=== PATIENT | male | born 1940 | race Caucasian/White ===

== ENCOUNTER 2016-08-04 05:20 | Inpatient (IN) | payer MEDICARE, OTHER ==
[2016-07-27 11:23] LABS: BASOPHILS 0.5 %; BASOPHILS ABSOLUTE 0.04 10/3/uL (0.0-0.16); EOSINOPHILS 2.5 %; EOSINOPHILS ABSOLUTE 0.21 10/3/uL (0.0-0.53); IMMATURE GRANULOCYTES 0.1 %; IMMATURE GRANULOCYTES ABSOLUTE 0.01 10/3/uL (0.0-0.11); LYMPHOCYTES ABSOLUTE 1.46 10/3/uL (0.67-4.30); MEAN CORPUSCULAR HEMOGLOB 25.6 pg (26.0-34.0); MEAN CORPUSCULAR VOLUME 80.8 fL (80-100); MEAN PLATELET VOLUME 9.2 fL (9.2-13.0); MONOCYTES 12.3 %; MONOCYTES ABSOLUTE 1.05 10/3/uL (0.21-1.20); NEUTROPHILS 67.6 %; PLATELET COUNT 203 10/3/uL (150-400); RBC DISTRIBUTION WIDTH 15.9 % (12.0-16.0); WHITE BLOOD CELLS 8.6 10/3/uL (4.5-10.5)
[2016-07-27 11:25] LABS: HEMATOCRIT 27.8 % (40.0-51.0); HEMOGLOBIN 8.8 g/dL (13.6-17.8); MANUAL DIFF NO %; MEAN CORPUS HGB CONC 31.7 g/dL (32.0-36.0); RED CELL COUNT 3.44 10/6/uL (4.7-6.1)
[2016-07-27 11:30] LABS: INTERNATIONAL NORMAL RATI 2.3 UNITS (-); PROTIME (NOT ORD) 25.3 SEC (12.0-14.5)
[2016-07-27 11:38] LABS: % IRON SAT 6 % (20-50); A/G RATIO 1.2 (0.7-1.9); ALBUMIN 3.8 G/DL (3.5-5.0); ALKALINE PHOSPHATASE 82 U/L (45-117); CALCIUM, SERUM 9.4 MG/DL (8.5-10.4); CHLORIDE, SERUM 108 MMOL/L (96-112); CO2 (CARBON DIOXIDE) 31 MMOL/L (24-34); CREATININE 1.11 MG/DL (0.70-1.30); GFR AFRICAN AMERICAN 74 ML/MIN (>=60); GFR NON AFRICAN AMERICAN 64 ML/MIN (>=60); GLOBULIN 3.3 G/DL (2.5-4.1); GLUCOSE, SERUM 86 MG/DL (60-99); IRON BINDING CAPACITY 510 MCG/DL (250-450); IRON, SERUM 30 MCG/DL (35-150); SGOT(AST) 10 U/L (5-40); SGPT(ALT) 17 U/L (5-65); SODIUM, SERUM 143 MMOL/L (135-148); TOTAL BILIRUBIN 0.4 MG/DL (0-1.2); TOTAL PROTEIN 7.1 G/DL (6.0-8.5)
[2016-07-27 11:39] LABS: BUN (BLOOD UREA NITROGEN) 18 MG/DL (6-23); POTASSIUM, SERUM 4.3 MMOL/L (3.5-5.3)
[2016-07-27 13:50] LABS: ASCORBIC ACID (UR NOT ORDER) 40 (NEG); BILIRUBIN, URINE NEGATIVE (NEG); KETONE, URINE NEGATIVE (NEG); LEUKOCYTE ESTERASE(NOT OR NEG (NEG); WBC (NOT ORDERED) (RFLEX) < 1 (0-5)
--- NOTE | ~2016-08-04 | OP ---
Record Of Operation [facility] [address] [place] [place]. [address] NAME: PETER KENNEDY : 38 STATUS : ADM IN [facility]#: [id number] AGE: 76 ADM/REG DATE : 08/04/16 MR#: [id number] REPORT SERV DATE: 08/09/16 DICTATED BY: JULIA DUTTON DATE: 08/06/16 REPORT STATUS : Draft TRANSCRIBED BY: MODJigna DATE: 08/06/16 DATE OF PROCEDURE: 08/04/2016 PREOPERATIVE DIAGNOSES: 1. Mitral valve stenosis with insufficiency. 2. Paroxysmal atrial fibrillation. 3. Right bundle branch block. 4. Hypertension. 5. Hyperlipidemia. 6. Pulmonary hypertension. POSTOPERATIVE DIAGNOSES: 1. Mitral valve stenosis with insufficiency. 2. Paroxysmal atrial fibrillation. 3. Right bundle branch block. 4. Hypertension. 5. Hyperlipidemia. 6. Pulmonary hypertension. PROCEDURE PERFORMED: 1. Mitral valve replacement using a 31 mm pericardial valve (Magna Ease with chordal- sparing technique). 2. Belle-Maze IV procedure on cardiopulmonary bypass using radiofrequency ablation and cryoablation. 3. Transesophageal echocardiography. SURGEON: Julia Dutton M.D. ASSISTANTS: Karthikeyan Moore and Adebayo Gibbs. ANESTHESIA: General with Dr. Dowd. ATTACHE: Christianne Duran M.D. INDICATIONS: This is a 76-year-old gentleman who has a history of mitral valve stenosis. He has increasing episodes of shortness of breath over the last several months and repeat echocardiography demonstrated a reduced valve area of the mitral valve at 1.06 cm2 with a mean gradient of 8 mmHg. There was also [id number] mitral valve insufficiency. The patient has history of paroxysmal atrial fibrillation and recently underwent cardioversion. He underwent a cardiac catheterization, which demonstrated less than 50% coronary artery stenosis. We were asked to see the patient for possible mitral valve replacement and consideration for Maze procedure. The patient complains of severe dyspnea walking less than a 100 yards. He cannot climb stairs without significant shortness of breath. He does have orthopnea and does wear a CPAP mask at night. He has no history of stroke. He does have peripheral edema. We saw the patient in our office and discussed possible mitral valve repair or replacement. After discussing the operations, indication, risks, they wished to Record Of Operation [facility] [address] [place]. [address] NAME: PETER KENNEDY : 39 STATUS : ADM IN PAT#: [id number] AGE: 76 ADM/REG DATE : 08/04/16 MR#: [id number] REPORT SERV DATE: 08/09/16 DICTATED BY: JULIA DUTTON DATE: 08/06/16 REPORT STATUS : Draft TRANSCRIBED BY: MODL DATE: 08/06/16 proceed. STS predicted mortality of less than 2% morbidity mortality of 12% were shared with the family. FINDINGS AT OPERATION: 1. Cross-clamp 79 minutes. Total pump time of 124 minutes. Residential solution was utilized. 2. The mitral valve had thickened bilateral leaflets. There was very thickened and shortened chordae of A2 and A1. Also along the posterior leaflet P2 and P3 had fused, thickened, and attach chordae to the posterior wall of the heart. We debrided and excised A1 and A2 leaflet with chords. We debulked the calcified mass of leaflet and chordal tissue around P2 and P3, but left some of the secondary chordal apparatus in place. We did preserve all of P1 chords. The annulus of the valve itself was not heavily calcified. 3. A 31 mm pericardial valve was implanted (Magna Ease). 7300 TFX. 14 Cor-Knots were utilized to secure the valve in place. 4. Belle-Maze IV procedure was performed on cardiopulmonary bypass using AtriCure radiofrequency ablation, pen and clamp and the cryoablation probe. This was a standard Belle-Maze 4 procedure, and complete lesion set can be found in the operative section under lesion set checklist. Both right and left atrial appendage lesion set was created. 5. The left atrial appendage was ligated at its base using a 45 mm AtriClip device. 6. NY at the end of the operation demonstrated good ventricular function. There was mild aortic insufficiency. No significant tricuspid insufficiency and the mitral prosthesis was functioning well without perivalvular leak. Pathologic specimen includes the leaflets of the mitral valve. DESCRIPTION OF PROCEDURE: The patient was brought to the operating suite where general anesthesia was induced and airway secured with an endotracheal tube. Lines secured by Anesthesia. Anguiano catheter was placed. NY probe was placed by Dr. Dowd and examination carried out in my attendance as discussed above. No clot was seen in the left atrial appendage. Midline sternal incision was made, the sternum opened with a saw. Lines were passed on the field for cardiopulmonary bypass and cleared of air. Heparin was administered by anesthesia. Pericardium was then opened from the innominate vein. The diaphragm was T'd and tacked to the side of the chest wall. Then cannulation pursestring sutures were placed in the ascending aorta and right atrial appendage. Cannulation of the ascending aorta was carried out first. We then began the right atrial Maze portion of the procedure. The AtriCure bipolar clamp was used to perform the right atrial appendage lesion and the lesion on to the right atrial free wall. We then placed the dual stage venous cannula through the right atrial appendage pursestring suture and this was secured. When all was in readiness, the patient was placed on cardiopulmonary bypass and we continued with the Maze procedure. Pursestring suture was placed in the right atrial free wall near the AV groove anteriorly. The vertical right atrial lesion performed using the AtriCure Record Of Operation [address] [address] NAME: PETER KENNEDY : 38 STATUS : ADM IN PAT#: [id number] AGE: 76 ADM/REG DATE : 08/04/16 MR#: [id number] REPORT SERV DATE: 08/09/16 DICTATED BY: JULIA DUTTON DATE: 08/06/16 REPORT STATUS : Draft TRANSCRIBED BY: PRINCESS DATE: 08/06/16 bipolar clamp. A pursestring sutures were placed in the interatrial groove of [facility], and the bipolar clamp was infused performing superior and inferior vena cava lesions set. Then, using the cryoprobe, a coronary sinus lesion was performed and also a lesion to the 2 o'clock position on the tricuspid annulus. We then moved on to the left-sided portion of the Maze procedure. Interatrial groove of [place] was dissected. We then dissected circumferentially around the confluence of both pulmonary veins. Testing for entrance conduction of the pulmonary veins was performed. The AtriCure bipolar clamp was then used to perform pulmonary vein isolation and testing was done after this. The aorta was then cross clamped. Initial and only dose of Residential solution was administered in antegrade fashion. Following the only dose of cardioplegia, the left atrium was opened in the interatrial groove of [place]. Heart was gently retracted towards the surgeon. The left atrial appendage was measured and the base of the left atrial appendage was occluded using a 45 mm AtriClip. Next superior and inferior dome lesions were performed using the RFA clamp. The lesion to the mitral annulus was performed using combination of RFA and cryoablation. Following the Maze procedure, we continued on with the mitral valve assessment. Bal retractor apparatus was assembled and positioned allowing good visualization of mitral valve. The mitral valve was inspected, both leaflets were very thickened and with shortened infused chordae. This was most pronounced along the P2, P3 cusps of the posterior leaflet where the leaflet was fused to the posterior ventricular wall, and there was extensive calcification along the chordal structure. This was debulked and debrided as best possible. We were able to preserve most of the secondary chordae of the posterior leaflet to the annulus. It was interesting that the annulus of the valve was not heavily calcified. We did resect anterior leaflet along with the fused and shortened chords. We irrigated the left ventricle copiously with iced saline to remove any particulate matter. The valve was sized and a 31 mm pericardial valve was selected (Magna Ease). Interrupted pledgeted sutures of 2-0 Tycron placed circumferentially about the mitral valve annulus. Sutures were passed through the sewing cuff of the valve prosthesis. This was lowered into position, each sutures individually secured and divided using a Cor-Knot device. 14 Cor- Knots were utilized. Iced saline injection through the orifice of the prosthetic valve demonstrated no insufficiency and good seating of the valve. Warming was begun. An LV vent was directed through the right superior pulmonary vein into the left ventricle through the prosthesis and secured. Left atriotomy was closed in a two- layer fashion with running pledgeted suture of 4-0 Prolene. The patient was placed in Trendelenburg and the ventricle and aorta were de-aired. The aortic cross-clamp was removed. The heart was allowed to rest on cardiopulmonary bypass and low-dose inotropic agents were started. Pacing was begun in AV fashion and ventilations were also begun. When the heart demonstrated good contractility, it was allowed to fill and eject. Record Of Operation [facility] [address] [place]. [address] NAME: PETER KENNEDY : 38 STATUS : ADM IN [facility]#: [id number] AGE: 76 ADM/REG DATE : 08/04/16 MR#: [id number] REPORT SERV DATE: 08/09/16 DICTATED BY: JULIA DUTTON DATE: 08/06/16 REPORT STATUS : Draft TRANSCRIBED BY: PRINCESS DATE: 08/06/16 Deairing was monitored with NY. When deairing was completed, the LV vent was removed and each pursestring sutures tied. The ascending aortic vent was likewise removed, and each pursestring sutures tied and reinforced. The patient was then weaned from cardiopulmonary bypass with inotropic support. The venous cannulas were removed and each pursestring sutures tied. NY examination demonstrated good functioning ventricle. Mitral prosthesis was well seated and there was no perivalvular leak. There was no significant tricuspid valve insufficiency. Protamine was administered by Anesthesia and following a period of hemodynamic stability, the aortic cannula was removed and each pursestring sutures tied and reinforced. The patient continued do well and chest irrigated copiously with saline. Meticulous hemostasis was obtained. Hemasorb was placed along the cut edge of the sternum. Once hemostasis was assured, the pericardium was draped over the anterior surface of the heart and tacked into position. Chest tubes were placed in sternum reapproximated with 8 sternal wires. The clavipectoral fascia and linea alba closed with #1 Stratafix. The subcutaneous tissue was closed with Stratafix and skin closed with subcuticular fashion. The patient tolerated the procedure well. There were no complications. Sponge and needle counts were correct. DISPOSITION: The patient was left intubated, sedated, and transported to the intensive care unit in a stable condition. JONNY/PRINCESS Julia Dutton M.D. / [id number] CC: Theodore Burden MAXWELL Lisa Gail Carkner, M.D.
--- NOTE | ~2016-08-04 | DS ---
Discharge Summary [facility] [address] [place] [place]. [address] NAME: PETER KENNEDY : 38 STATUS : DIS IN PAT#: [id number] AGE: 76 ADM/REG DATE : 08/04/16 MR#: [id number] REPORT SERV DATE: 09/23/16 DICTATED BY: JULIA DUTTON DATE: 09/20/16 REPORT STATUS : Draft TRANSCRIBED BY: PRINCESS DATE: 09/20/16 Data Collection from hospitalization DISCHARGE DIAGNOSIS(ES): 1. Mitral valve stenosis with insufficiency, status post mitral valve replacement. 2. Hypertension. 3. Acute kidney injury. 4. Recurrent atrial fibrillation. 5. Hyperlipidemia. 6. Secondary pulmonary hypertension. 7. Former smoker. CONSULTATIONS: 1. Del Santos DO. 2. Marin Rider M.D. 3. Aurelio Martin Jr, MD. 4. Christianne Duran M.D. 5. Truong Cloud M.D. PROCEDURES PERFORMED: Mitral valve replacement using 31 mm pericardial valve (Magna Ease with chordal sparing technique), Belle-Maze IV procedure on cardiopulmonary bypass using radiofrequency ablation and cryoablation, transesophageal echocardiography 08/04/2016. 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 MEDICATIONS: Vitamin C 1000 mg twice a day, aspirin 81 mg daily, vitamin D3 2000 units daily, Klor-Con 10 mEq at bedtime, Pravachol 40 mg daily, Aldactone 25 mg daily, Demadex 40 mg every morning, Stresstabs 1 tablets twice a day, Coumadin 2 mg at 6 a.m. as instructed, Lopressor 25 mg twice a day, Norvasc 5 mg daily, and vitamin D twice a day as instructed. CONDITION AT DISCHARGE: Stable. DISPOSITION: The patient was discharged to [facility] on a cardiac diet with activities as instructed. HOSPITAL COURSE: This is a 76-year-old man who has a history of mitral valve stenosis. He had increasing episodes of shortness of breath over the past several months, and repeat echocardiography demonstrated a reduced valve area of the mitral valve at 1.06 cm sq with a mean gradient of 8 mmHg. There was also [id number] mitral valve insufficiency. The patient has a history of paroxysmal atrial fibrillation and recently underwent cardioversion. He underwent a cardiac catheterization which demonstrated less than 50% coronary artery stenosis. We had been asked to see the patient regarding possible mitral valve replacement and consideration for maze procedure. The patient complained of severe dyspnea on walking less than 100 yards. He cannot climb stairs without significant shortness of breath. He does have orthopnea and does wear a CPAP mask at night. He does have peripheral edema. The patient had been seen in the office and treatment options were discussed. It was elected to proceed with surgical intervention. He was admitted to the hospital at this time for further evaluation and treatment. Discharge Summary [address] [address] NAME: PETER KENNEDY : 38 STATUS : DIS IN PAT#: [id number] AGE: 76 ADM/REG DATE : 08/04/16 MR#: [id number] REPORT SERV DATE: 09/23/16 DICTATED BY: JULIA DUTTON DATE: 09/20/16 REPORT STATUS : Draft TRANSCRIBED BY: PRINCESS DATE: 09/20/16 Upon admission, he was taken to the operating room where he underwent the above-mentioned procedure. He tolerated this well, and there were no complications. On postop day #1, he was being weaned from the ventilator. Routine postop care was being provided. Levophed was being weaned. He had no new complaints. He had mildly decreased breath sounds in the lung bases. He remained in the ICU at this time. He did have some leukocytosis as expected. He was seen by Dr. Christianne Duran regarding postop soreness. He was given an additional dose of Bumex. Pravastatin was added back to his regimen. Beta flaquita and amiodarone were held while on paced rhythm. He will be placed on anticoagulation with warfarin after his pacing wires were removed. On the , he was up sitting in a chair. He was awake and alert. His incisions looked okay. He had no edema. White count was 23.9. He did have some wheezing. He complained of a decreased appetite. Aspirin was being given. Metoprolol and amiodarone remained on hold. Pravastatin was continued. He was seen by Dr. Marin Rider regarding worsening kidney function. His white count was 23,000. Creatinine level was 1.82. He was felt to have acute kidney injury. It was suspected that with no history of nephrotoxins and no contrast, this was mainly hypotension intraoperatively and adjustment to correction of his pulmonary hypertension picture and acting prerenal. A pericardial rub was heard earlier in the day. An echocardiogram was requested. We would rule out pericardial effusion. Echocardiogram was pending. Chest x-ray was obtained. We were doubtful of significant effusion. We would continue positive fluid balance for another 24 hours and then attempt diuresis. He was also seen by Dr. Del Santos. The patient has no history of lung disease. He is not on any inhalers or oxygen at home. He had tried an inhaler in the past when I told him he was wheezing, but he said it never helped. He does wear a CPAP machine for obstructive sleep apnea. He had a low-grade temperature with a temperature 101. He was receiving DuoNeb aerosols, EzPAP, and incentive spirometry. It was felt that his shortness of breath and wheezing was likely related to interstitial edema and pleural fluid. He also had some atelectasis. Blood, urine, and sputum cultures were going to be obtained. We would check a procalcitonin level. We were going to hold off on antibiotics for now. Pulmonary toilet was continued. The patient was mildly acidotic. ABG was going to be checked. The patient was also seen by Dr. Aurelio aMrtin Jr., regarding diabetes management. The patient had been on an insulin drip since surgery. He has no history of diabetes mellitus but did have postop insulin resistance. His preoperative hemoglobin A1c was 5.6. He was on no antihyperglycemic medications. In addition, the patient also had a low-grade fever and leukocytosis currently. Chest x-ray showed bilateral perihilar and bibasilar atelectasis with median sternotomy changes. Given his significant insulin resistance, we would continue the insulin drip for now and transition to subcu in one or two days. On the , Ensure was ordered. He was up sitting in a chair. Metoprolol and amiodarone were being held secondary to bradycardia. Creatinine level had decreased to 1.45. We encouraged him to mobilize. Routine postop care continued. Bronchodilator protocol was continued. He still had a slight wheeze. The following day, he seemed to be much more alert. He was doing well postoperatively. Creatinine level had decreased to 1.18. He had some mild dysphagia. The patient had some wheezing after trying to take a pill without water. The patient had no wheezing at the posterior lung bases or anterior chest on exam. There was a loud wheezing heard at the neck. His reports that this is chronic but had worsened. Vocal cord pathology was suspected as the source for wheezing. Steroids were increased. The patient was seen by Dr. Truong Cloud. A flexible nasopharyngeal study was performed. The patient on the asked to breathe deeply. Discharge Summary [address] [address] NAME: PETER KENNEDY : 38 STATUS : DIS IN PAT#: [id number] AGE: 76 ADM/REG DATE : 08/04/16 MR#: [id number] REPORT SERV DATE: 09/23/16 DICTATED BY: JULIA DUTTON DATE: 09/20/16 REPORT STATUS : Draft TRANSCRIBED BY: PRINCESS DATE: 09/20/16 The patient had received a dose of racemic therapy. Insulin drip was stopped. Level 2 sliding scale insulin was started. Mylanta was going to be given as needed for indigestion. Cardizem drip was going to be started. He was going to be given three doses of IV Decadron. The patient did have an end expiratory wheeze. He did have a strong cough. On 08/09/2016, he seemed to be feeling better. He had no difficulty with medications and applesauce. His incisions looked okay. He had no edema. His wheeze had resolved. His ENT exam had been normal. Steroids were discontinued. He went into atrial fibrillation over the weekend, otherwise was asymptomatic. Aspirin, warfarin, and metoprolol were continued. Amiodarone drip was going to be restarted for 24 hours. It was felt the patient may need to undergo transesophageal echocardiogram and cardioversion. He was agreeable to proceed. Speech/Language Pathology performed a bedside swallow evaluation. There were no overt signs or symptoms of aspiration. The next day, he had had conversion from atrial fibrillation to a junctional escape rhythm-wide complex. Amiodarone was discontinued. White count was 15.8. His INR level was 5.5. Warfarin was held. Chest x-ray did show left pleural effusion. The patient was changed to subcu insulin for the postoperative hyperglycemia. Vitamin K was ordered. On the , his arterial line was removed. INR level decreased to 1.6 after receiving vitamin K. white count was still elevated at 18.4. The patient said he had some shortness of breath when getting from the bed to the chair. His had some anxiety about going home. Warfarin was restarted at a decreased dose. Aspirin, amlodipine, and pravastatin were continued. Beta-flaquita and amiodarone were held. On the , his temperature was 99. His incisions looked okay. He had no edema. He said he was feeling much better. He did have some weakness. Potassium supplementation was being given. Over the next couple of days, he continued to do well. He was evaluated by Physical Therapy. He had no new issues. On 08/17/2016, he had mildly decreased breath sounds in the left lung base. He had no new complaints. INR level was 1.8. He had recurrent atrial fibrillation but was asymptomatic. Amiodarone was being provided per protocol. Torsemide was increased. If he failed to convert on amiodarone, we would perform a transesophageal echocardiogram/cardioversion. On the , he was feeling better. He was back in a sinus rhythm. He was wanting to go to rehab. Amiodarone drip was stopped. He was placed on oral amiodarone. Warfarin was continued. The next day, discharge planning was performed. His rhythm remained stable. His abdomen was soft and nontender. INR level was 2. Norvasc was stopped. Torsemide was increased. Potassium supplementation was given. Amiodarone was decreased. On 08/20/2016, discharge instructions were given. Due to his improved and stable condition, he was discharged to [facility] with the above-stated instructions. Information collected by: Audrey Torres I submit the above information as my discharge summary. MORGAN/MODJigna Julia Dutton M.D. / [id number] Discharge Summary [address] [address] NAME: PETER KENNEDY : 38 STATUS : DIS IN PAT#: [id number] AGE: 76 ADM/REG DATE : 08/04/16 MR#: [id number] REPORT SERV DATE: 09/23/16 DICTATED BY: JULIA DUTTON DATE: 09/20/16 REPORT STATUS : Draft TRANSCRIBED BY: PRINCESS DATE: 09/20/16 CC: Theodore Burden MAXWELL Joseph Watlington, M.D. David L Armstrong, M.D. Lisa Gail Carkner, M.D. [facility]
--- NOTE | ~2016-08-04 | CN ---
Consultation Report [facility] [address] [place] [place]. [address] NAME: PETER KENNEDY : 38 STATUS : ADM IN [facility]#: [id number] AGE: 76 ADM/REG DATE : 08/04/16 MR#: [id number] REPORT SERV DATE: 08/06/16 DICTATED BY: DEL SANTOS DATE: 08/06/16 REPORT STATUS : Draft TRANSCRIBED BY: MODJigna DATE: 08/06/16 CONSULTATION DATE OF CONSULTATION: HISTORY OF PRESENT ILLNESS: A 76-year-old white male, we are asked to come see because of shortness of breath and wheezing. The patient was admitted on 08/04/2016 after he had a mitral valve replacement by Dr. Dutton. He has a history of mitral valve stenosis with insufficiency. He also has history of paroxysmal atrial fibrillation, right bundle-branch block, hypertension, dyslipidemia, and pulmonary hypertension. Postoperatively, he did have a low hemoglobin which did require blood transfusions. He also has an acute kidney injury, for which Nephrology was consulted and have been giving him Bumex. The patient has no history of lung disease and is not on any inhalers or oxygen at home. He has tried an inhaler in the past when I told him he has wheezing, but he said it never helped him. He does wear a CPAP machine for obstructive sleep apnea. He does have low-grade temperatures with a temp of 101. He is only on 2 L/min of oxygen currently. He is getting DuoNeb aerosols, EzPAP, and incentive spirometry. REVIEW OF SYSTEMS: He complains of some chest pain at the sternotomy site. Not much leg swelling, headache, or seizure. He did have a bowel movement today. No vomiting. He does not have much cough, but they did say he was wheezing. PAST MEDICAL HISTORY: See above. FAMILY HISTORY: Father, myocardial infarction. Mother, cancer. Sister, hypertension. SOCIAL HISTORY: Ex-smoker but quit many years ago. No alcohol use. The patient is . HOME MEDICATIONS: Reviewed. ALLERGIES: SULFA, TETANUS VACCINE. PHYSICAL EXAMINATION: VITAL SIGNS: Per nursing flow sheet. GENERAL: No significant distress. Answers questions appropriately. Alert. HEENT: Normocephalic, atraumatic. Pupils are equal, round, and reactive to light. NECK: Trachea midline. HEART: Regular rate and rhythm. There is a cardiac rub. LUNGS: A little bit of a wheeze on the left side. Clear anteriorly. No accessory muscle use. On 2 L/min of oxygen. GI: Soft, nontender, nondistended. Chest tubes are present. : Anguiano catheter present with yellow urine. EXTREMITIES: No significant edema, cyanosis, or clubbing. Consultation Report [address] [place]. [address] NAME: PETER KENNEDY : 38 STATUS : ADM IN [facility]#: [id number] AGE: 76 ADM/REG DATE : 08/04/16 MR#: [id number] REPORT SERV DATE: 08/06/16 DICTATED BY: DEL SANTOS DATE: 08/06/16 REPORT STATUS : Draft TRANSCRIBED BY: PRINCESS DATE: 08/06/16 LABORATORY DATA: Reviewed. Chest x-rays reviewed. ASSESSMENT/PLAN: 1. Shortness of breath and wheezing, likely related to interstitial edema and pleural fluid. 2. Atelectasis. 3. Fever. 4. Mitral valve replacement. Likely we will check cultures of blood, urine and sputum, and check a procalcitonin level. Hold off on antibiotics for now. Continue pulmonary toilet as otherwise prescribed per post cardiac surgery orders. We will leave diuretics to Nephrology for now considering BUN is climbing to 50 and creatinine is 1.82 at this point in time and the patient is mildly acidotic. We will also check an ABG. We will follow. CEP/MODL Del Santos DO / [id number] CC: Chago Dutton M.D. Eduin Aparicio
--- NOTE | ~2016-08-04 | CN ---
Consultation Report [facility] [address] [place] [place]. [address] NAME: PETER KENNEDY : 38 STATUS : ADM IN [facility]#: [id number] AGE: 76 ADM/REG DATE : 08/04/16 MR#: [id number] REPORT SERV DATE: 08/06/16 DICTATED BY: JR. MARTIN WILLIAM JOHN DATE: 08/06/16 REPORT STATUS : Draft TRANSCRIBED BY: MODJigna DATE: 08/06/16 INTERNAL MEDICINE CONSULTATION DATE OF CONSULTATION: 08/06/2016 REASON FOR REQUEST: Diabetes management. HISTORY OF PRESENT ILLNESS: A 76-year-old male, admitted 08/[address] Dutton for mitral valve replacement secondary to mitral valve stenosis with insufficiency. The patient also has paroxysmal atrial fibrillation with right bundle-branch block. The patient was underwent uneventful surgery. He was weaned from the ventilator and extubated on postop day #1. He was then noted to have acute kidney injury on postop day #2 as well as respiratory insufficiency. Pulmonary and Nephrology have seen the patient and are following. The patient has been on insulin drip since surgery. I have been asked to assist. The patient has no history of diabetes mellitus, but does have postop insulin resistance. His preoperative hemoglobin A1c was 5.6 on no antihyperglycemic medications. In addition, the patient has low-grade fever and leukocytosis currently. He denies significant cough or urinary symptoms. PAST MEDICAL HISTORY: Includes, 1. Mitral valve replacement on 08/04/2016. 2. Mitral valve stenosis with insufficiency. 3. Paroxysmal atrial fibrillation. 4. Right bundle-branch block. 5. Hypertension. 6. Hyperlipidemia. 7. Pulmonary hypertension. CURRENT MEDICATIONS: Include insulin drip at 1.5 units/hour currently, Bumex 1 mg IV daily, Dulcolax 10 mg as needed, aspirin 81 mg daily, Orazinc 220 mg daily, Pravachol 40 mg daily, Senokot 2 mg twice a day, vitamin C 500 twice a day, vitamin D 1000 units daily. ALLERGIES: SULFA, TETANUS TOXOID, AND ADHESIVES. FAMILY HISTORY: Mother in her 80s of cancer. Father in his 80s of prostate cancer. SOCIAL HISTORY: Lives in [place], [place] with his . He is . 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 Denies tobacco, alcohol, or illicit drugs. He did smoke 40 years ago. REVIEW OF SYSTEMS: Review of systems was negative in all 12 systems reviewed. He did admit to fevers. He also Consultation Report [address] [place]. [address] NAME: PETER KENNEDY : 38 STATUS : ADM IN [facility]#: [id number] AGE: 76 ADM/REG DATE : 08/04/16 MR#: [id number] REPORT SERV DATE: 08/06/16 DICTATED BY: JR. MARTIN WILLIAM JOHN DATE: 08/06/16 REPORT STATUS : Draft TRANSCRIBED BY: PRINCESS DATE: 08/06/16 had chills after a Hibiclens bath. He also admits to occasional headache, chest pain with cough, palpitations, shortness of breath, constipation, and occasional depressive symptoms without suicidal or homicidal ideation. PHYSICAL EXAMINATION: VITAL SIGNS: Temperature current 98.5, temperature maximum was 100.9; blood pressure 135/57; heart rate 81; respiratory rate 20 on 2 L oxygen by nasal cannula, and insulin drip at 1.5 units/hour currently. GENERAL: Patient is alert, oriented, somewhat slow to respond to questions. HEENT: Pupils are equal, round, and reactive to light. Extraocular motion intact. Sclerae anicteric. Oropharynx clear. NECK: Supple. There is no jugular venous distention, thyromegaly, or bruits. He did have a right triple-lumen catheter in his internal jugular. CARDIOVASCULAR: Median sternotomy without pain on palpation with subxiphoid drains x2. S1 and S2 with an S3 audible. Regular rate and rhythm. No murmur. LUNGS: With some stridorous wheezing with symmetrical chest rise. ABDOMEN: Soft, nontender. Bowel sounds present. EXTREMITIES: Show no clubbing, no cyanosis, or edema. NEUROLOGIC: Cranial nerves 2 through 12 are intact. Strength and sensation were full and equal throughout. Lymph node survey is negative in cervical and supraclavicular region. PSYCHIATRIC: Mood and affect were appropriate, although he is somewhat somnolent. DERMATOLOGIC: No rashes or other lesions noted. : Anguiano in place. LABORATORY DATA: White count 23.9, hemoglobin 8.4, platelets 129. Sodium 133, potassium 3.4, chloride 103, bicarb 19, BUN 50, creatinine 1.8, glucose 135, magnesium 2.5, calcium 8.5. Chest x-ray showed bilateral perihilar and bibasilar atelectasis with median sternotomy changes. ASSESSMENT/PLAN: A 76-year-old white male with, 1. Postop hyperglycemia in a patient who is not diabetic and had a preop hemoglobin A1c of 5.6. He is currently on an insulin drip of 1.5 units/hour, it is being titrated between 1.5 and 7 units/hour. Given his significant insulin resistance, would continue the insulin drip for now and transition to subcu in one to two days. 2. Low-grade fever/leukocytosis. Urinalysis has already been ordered if not done. We will check blood cultures x2 for temperature greater than 101. 3. Hypertension. Management per Cardiology. 4. Hyperlipidemia. Management per Cardiology. 5. Shortness of breath. Management per Pulmonary. I will follow this patient. WJF/MODL Consultation Report [address] [address] NAME: PETER KENNEDY : 38 STATUS : ADM IN [facility]#: [id number] AGE: 76 ADM/REG DATE : 08/04/16 MR#: [id number] REPORT SERV DATE: 08/06/16 DICTATED BY: JR. MARTIN WILLIAM JOHN DATE: 08/06/16 REPORT STATUS : Draft TRANSCRIBED BY: PRINCESS DATE: 08/06/16 Aurelio Martin Jr, MD / [id number] CC: Chago Dutton M.D. SUJIT ALICEA
--- NOTE | ~2016-08-04 | CN ---
Consultation Report [facility] [address] [place] [place]. [address] NAME: PETER KENNEDY : 38 STATUS : ADM IN [facility]#: [id number] AGE: 76 ADM/REG DATE : 08/04/16 MR#: [id number] REPORT SERV DATE: 08/06/16 DICTATED BY: MARIN LEUNG DATE: 08/06/16 REPORT STATUS : Draft TRANSCRIBED BY: MODL DATE: 08/06/16 NEPHROLOGY CONSULTATION DATE OF CONSULTATION: HISTORY OF PRESENT ILLNESS: Mr. Kennedy is a 76-year-old white male with mitral valve stenosis, status post mitral valve replacement, maze procedure, and [place] on 08/04. I am consulted today for worsening kidney function. PAST MEDICAL HISTORY: Atrial fibrillation, right bundle-branch block, hyperlipidemia, hypertension with atrial fibrillation treated with anticoagulants, and well-documented pulmonary hypertension prior to surgery. HOME MEDICATIONS: Reviewed. No nephrotoxic agents. He was on Xarelto prior to surgery, which was held for surgery. No ECTOR inhibitors or ARBs preop or intraop or postop. REVIEW OF SYSTEMS: Chronic wheezing at home, initially thought it was asthma and then they found his mitral valve disease and atrial fibrillation, and he has been off his inhalers for some time. He is comfortable currently. Good appetite. Has been extubated two days after surgery and denies any chest pain at present. Earlier, they did hear a pericardial rub. Echocardiogram has been done, I do not have the report back yet. No hypotension postop, intraoperatively was 90s over 40s. FAMILY HISTORY: Positive for coronary artery disease, cancer, and hypertension. SOCIAL HISTORY: Ex smoker. No alcohol. No drugs. He is , his is in the room with him. ALLERGIES: ALLERGIC TO SULFA AND TETANUS TOXOID. MEDICATIONS: Vitamin C, aspirin, vitamin D, Pepcid, Pravachol, Senokot, stress tablets, Orazinc. Off all pressors and getting a normal saline at 30 mL an hour. PHYSICAL EXAMINATION: VITAL SIGNS: Currently, show a blood pressure of 157/71, heart rate of 60, respirations 20, and afebrile. GENERAL: Alert and comfortable, in no acute distress. HEENT: Unremarkable. NECK: Supple. Minimal jugular venous distention. LUNGS: Show late expiratory wheezing, mild. CARDIOVASCULAR: Without rub now, although was heard earlier. ABDOMEN: Soft, dilated, nontender and bowel sounds are present. Consultation Report [address] [place]. [address] NAME: PETER KENNEDY : 38 STATUS : ADM IN [facility]#: [id number] AGE: 76 ADM/REG DATE : 08/04/16 MR#: [id number] REPORT SERV DATE: 08/06/16 DICTATED BY: MARIN LEUNG DATE: 08/06/16 REPORT STATUS : Draft TRANSCRIBED BY: PRINCESS DATE: 08/06/16 EXTREMITIES: 1+ edema diffusely. NEUROLOGICAL: Intact and nonfocal. Oriented x3. A good historian. LABORATORY DATA: Shows sodium 133, potassium 3.9, chloride 103, CO2 of 19, BUN of 50, creatinine 1.82. White count is 23,000; hemoglobin 8; hematocrit 26; platelet count 129,000. INR 1.9 checked two days ago. Urinalysis on 07/27 was clear, we will recheck one today. Chest x-ray is noted, some atelectasis, but appears improved from yesterday. ASSESSMENT: 1. Acute kidney injury post mitral valve replacement. Suspect with no history of nephrotoxins and no contrast, this is mainly hypotension intraoperatively and adjustment to correction of his pulmonary hypertension picture and acting prerenal. 2. Mitral valve replacement with significant history of pulmonary hypertension prior to surgery. Readjusting now with some pulmonary wheezing, thought to be more volume related than actual bronchospasm. 3. Hypertension. No ARBs or ECTOR inhibitors. 4. Pericardial rub, heard earlier today. Echocardiogram is ordered, but results are pending. 5. Atrial fibrillation prior to hospitalization. 6. Hyperlipidemia. PLAN: We will follow. Rule out pericardial effusion, echocardiogram pending. I doubt he has significant effusion with his chest x-ray picture we see. Continue positive fluid balance for another 24 hours, and then we will attempt diuresis. He is day two of presumed four days of adjusting to new blood pressure. CHAZ/PRINCESS Marin Leung M.D. / [id number] CC: Theodore Burden Maxwell
[~2016-08-04 05:20] MED LIST: ASAB PO; CENTRUM PO; DEMA20 PO; KLOR-CON 1010 MEQ PO; LOP25 PO; MAXZIDE PO; NORV5 PO; PRAVACHOL40 MG PO; SPIRO25 PO; VITAMIN B COMPLEX; VITAMIN B-1500 MG PO; VITAMIN D31000 UNIT PO; XARELTO20 MG PO
[2016-08-04 12:25] LABS: BE (BASE EXCESS) -6.7 MEQ/L (0 +/- 2.5); CARBOXYHEMOGLOBIN 1.1 % (0-3); HCO3 (ACTUAL BICARBONATE) 18.8 MEQ/L (23-27); HEMOBLOGIN CONTENT 7.1 G/DL (14-18); INSTRUMENT SERIAL # 11843; O2 CONTENT 10.4 VOL% (18-24); OPERATOR ID 32214; PCO2 (CO2 TENSION) 37 MMHG (35-45); PO2 (O2 TENSION) 268 MMHG (79-93); SAMPLE Arterial; TIDAL VOLUME 700 ML; pH 7.32 (7.37-7.43)
[2016-08-04 12:52] LABS: PLATELET COUNT 179 10/3/uL (150-400)
[2016-08-04 13:00] LABS: INTERNATIONAL NORMAL RATI 1.9 UNITS (-); PARTIAL THROMBO TIME 32.6 SEC (22.5-37.2)
[2016-08-04 13:01] LABS: PROTIME (NOT ORD) 21.3 SEC (12.0-14.5)
[2016-08-04 13:07] LABS: HEMOGLOBIN 6.4 g/dL (13.6-17.8)
[2016-08-04 13:08] LABS: HEMATOCRIT 20.4 % (40.0-51.0)
[2016-08-04 13:13] LABS: BUN (BLOOD UREA NITROGEN) 18 MG/DL (6-23); CHLORIDE, SERUM 103 MMOL/L (96-112); CO2 (CARBON DIOXIDE) 23 MMOL/L (24-34); CREATININE 1.38 MG/DL (0.70-1.30); GFR AFRICAN AMERICAN 57 ML/MIN (>=60); GFR NON AFRICAN AMERICAN 49 ML/MIN (>=60); GLUCOSE, SERUM 146 MG/DL (60-99); POTASSIUM, SERUM 5.1 MMOL/L (3.5-5.3); SODIUM, SERUM 138 MMOL/L (135-148)
[2016-08-04 18:33] LABS: CARBOXYHEMOGLOBIN 0.5 % (0-3); DEVICE NC; HEMOBLOGIN CONTENT 9.8 G/DL (14-18); INSTRUMENT SERIAL # 11843; METHEMOGLOBIN 0.7 % (0-3); O2 CONTENT 13.4 VOL% (18-24); OPERATOR ID 32214; PCO2 (CO2 TENSION) 36 MMHG (35-45); PO2 (O2 TENSION) 111 MMHG (79-93); SAMPLE Arterial; pH 7.35 (7.37-7.43)
[2016-08-04 18:59] LABS: HEMOGLOBIN 9.4 g/dL (13.6-17.8)
[2016-08-04 19:00] LABS: HEMATOCRIT 29.5 % (40.0-51.0)
[2016-08-04 19:08] LABS: CALCIUM, SERUM 8.6 MG/DL (8.5-10.4); CHLORIDE, SERUM 110 MMOL/L (96-112); CO2 (CARBON DIOXIDE) 23 MMOL/L (24-34); CREATININE 1.39 MG/DL (0.70-1.30); GFR AFRICAN AMERICAN 56 ML/MIN (>=60); GFR NON AFRICAN AMERICAN 49 ML/MIN (>=60); POTASSIUM, SERUM 4.6 MMOL/L (3.5-5.3); SODIUM, SERUM 141 MMOL/L (135-148)
[2016-08-04 19:11] LABS: BUN (BLOOD UREA NITROGEN) 23 MG/DL (6-23); GLUCOSE, SERUM 115 MG/DL (60-99)
[2016-08-05 01:07] LABS: HEMATOCRIT 27.8 % (40.0-51.0)
[2016-08-05 01:17] LABS: BUN (BLOOD UREA NITROGEN) 26 MG/DL (6-23); CALCIUM, SERUM 8.3 MG/DL (8.5-10.4); CHLORIDE, SERUM 111 MMOL/L (96-112); CO2 (CARBON DIOXIDE) 21 MMOL/L (24-34); CREATININE 1.57 MG/DL (0.70-1.30); GFR AFRICAN AMERICAN 49 ML/MIN (>=60); GFR NON AFRICAN AMERICAN 42 ML/MIN (>=60); POTASSIUM, SERUM 4.2 MMOL/L (3.5-5.3); SODIUM, SERUM 143 MMOL/L (135-148)
[2016-08-05 01:18] LABS: GLUCOSE, SERUM 89 MG/DL (60-99)
[2016-08-05 03:51] LABS: BASOPHILS 0 %; EOSINOPHILS 0 %; HEMATOCRIT 27.8 % (40.0-51.0); HEMOGLOBIN 8.7 g/dL (13.6-17.8); IMMATURE GRANULOCYTES 0.4 %; IMMATURE GRANULOCYTES ABSOLUTE 0.08 10/3/uL (0.0-0.11); LYMPHOCYTES 4.2 %; LYMPHOCYTES ABSOLUTE 0.89 10/3/uL (0.67-4.30); MEAN CORPUS HGB CONC 31.3 g/dL (32.0-36.0); MEAN CORPUSCULAR HEMOGLOB 25.8 pg (26.0-34.0); MEAN CORPUSCULAR VOLUME 82.5 fL (80-100); MEAN PLATELET VOLUME 9.6 fL (9.2-13.0); MONOCYTES 8.1 %; MONOCYTES ABSOLUTE 1.71 10/3/uL (0.21-1.20); NEUTROPHILS 87.3 %; NEUTROPHILS ABSOLUTE 18.41 10/3/uL (2.02-8.40); PLATELET COUNT 151 10/3/uL (150-400); RBC DISTRIBUTION WIDTH 15.6 % (12.0-16.0); RED CELL COUNT 3.37 10/6/uL (4.7-6.1)
[2016-08-05 03:56] LABS: MANUAL DIFF NO %; WHITE BLOOD CELLS 21.1 10/3/uL (4.5-10.5)
[2016-08-05 04:24] LABS: BUN (BLOOD UREA NITROGEN) 30 MG/DL (6-23); CALCIUM, SERUM 8.5 MG/DL (8.5-10.4); CHLORIDE, SERUM 110 MMOL/L (96-112); CO2 (CARBON DIOXIDE) 20 MMOL/L (24-34); CREATININE 1.47 MG/DL (0.70-1.30); GFR AFRICAN AMERICAN 53 ML/MIN (>=60); GFR NON AFRICAN AMERICAN 45 ML/MIN (>=60); GLUCOSE, SERUM 110 MG/DL (60-99); POTASSIUM, SERUM 4.1 MMOL/L (3.5-5.3); SODIUM, SERUM 143 MMOL/L (135-148)
[2016-08-05 13:37] LABS: POTASSIUM, SERUM 3.9 MMOL/L (3.5-5.3)
[2016-08-05 16:18] LABS: HEMATOCRIT 26.6 % (40.0-51.0)
[2016-08-06 04:27] LABS: BASOPHILS 0 %; EOSINOPHILS 0 %; HEMATOCRIT 26.2 % (40.0-51.0); HEMOGLOBIN 8.4 g/dL (13.6-17.8); IMMATURE GRANULOCYTES 0.5 %; IMMATURE GRANULOCYTES ABSOLUTE 0.12 10/3/uL (0.0-0.11); LYMPHOCYTES 5.3 %; LYMPHOCYTES ABSOLUTE 1.27 10/3/uL (0.67-4.30); MANUAL DIFF NO %; MEAN CORPUS HGB CONC 32.1 g/dL (32.0-36.0); MEAN CORPUSCULAR HEMOGLOB 25.8 pg (26.0-34.0); MEAN CORPUSCULAR VOLUME 80.6 fL (80-100); MEAN PLATELET VOLUME 9.7 fL (9.2-13.0); MONOCYTES 15.6 %; MONOCYTES ABSOLUTE 3.74 10/3/uL (0.21-1.20); NEUTROPHILS 78.6 %; NEUTROPHILS ABSOLUTE 18.81 10/3/uL (2.02-8.40); PLATELET COUNT 129 10/3/uL (150-400); RBC DISTRIBUTION WIDTH 15.9 % (12.0-16.0); RED CELL COUNT 3.25 10/6/uL (4.7-6.1); WHITE BLOOD CELLS 23.9 10/3/uL (4.5-10.5)
[2016-08-06 04:32] LABS: CALCIUM, SERUM 8.6 MG/DL (8.5-10.4); CHLORIDE, SERUM 104 MMOL/L (96-112); CO2 (CARBON DIOXIDE) 22 MMOL/L (24-34); CREATININE 1.66 MG/DL (0.70-1.30); GFR AFRICAN AMERICAN 45 ML/MIN (>=60); GFR NON AFRICAN AMERICAN 39 ML/MIN (>=60); SODIUM, SERUM 137 MMOL/L (135-148)
[2016-08-06 04:33] LABS: BUN (BLOOD UREA NITROGEN) 47 MG/DL (6-23); GLUCOSE, SERUM 159 MG/DL (60-99)
[2016-08-06 12:44] LABS: BUN (BLOOD UREA NITROGEN) 50 MG/DL (6-23); CALCIUM, SERUM 8.5 MG/DL (8.5-10.4); CHLORIDE, SERUM 103 MMOL/L (96-112); CO2 (CARBON DIOXIDE) 19 MMOL/L (24-34); CREATININE 1.82 MG/DL (0.70-1.30); GFR AFRICAN AMERICAN 41 ML/MIN (>=60); GFR NON AFRICAN AMERICAN 35 ML/MIN (>=60); GLUCOSE, SERUM 135 MG/DL (60-99); POTASSIUM, SERUM 3.9 MMOL/L (3.5-5.3); SODIUM, SERUM 133 MMOL/L (135-148)
[2016-08-06 18:18] LABS: CARBOXYHEMOGLOBIN 0.2 % (0-3); DEVICE NC; HCO3 (ACTUAL BICARBONATE) 18.5 MEQ/L (23-27); HEMOBLOGIN CONTENT 9.5 G/DL (14-18); INSTRUMENT SERIAL # 11843; METHEMOGLOBIN 0.5 % (0-3); O2 CONTENT 12.7 VOL% (18-24); OPERATOR ID 13624; PCO2 (CO2 TENSION) 25 MMHG (35-45); PO2 (O2 TENSION) 79 MMHG (79-93); SAMPLE Arterial; pH 7.48 (7.37-7.43)
[2016-08-06 20:32] LABS: ASCORBIC ACID (UR NOT ORDER) 40 (NEG); BILIRUBIN, URINE NEGATIVE (NEG); KETONE, URINE TRACE MG/DL (NEG); LEUKOCYTE ESTERASE(NOT OR NEG (NEG); WBC (NOT ORDERED) (RFLEX) 3 (0-5)
[2016-08-06 21:03] LABS: SODIUM, URINE < 5 MEQ/L
[2016-08-07 04:43] LABS: BASOPHILS 0 %; BASOPHILS ABSOLUTE 0.01 10/3/uL (0.0-0.16); EOSINOPHILS 0 %; HEMATOCRIT 24.9 % (40.0-51.0); HEMOGLOBIN 8.3 g/dL (13.6-17.8); IMMATURE GRANULOCYTES 0.6 %; IMMATURE GRANULOCYTES ABSOLUTE 0.14 10/3/uL (0.0-0.11); LYMPHOCYTES 8.6 %; LYMPHOCYTES ABSOLUTE 1.86 10/3/uL (0.67-4.30); MANUAL DIFF NO %; MEAN CORPUS HGB CONC 33.3 g/dL (32.0-36.0); MEAN CORPUSCULAR HEMOGLOB 26.5 pg (26.0-34.0); MEAN CORPUSCULAR VOLUME 79.6 fL (80-100); MEAN PLATELET VOLUME 9.9 fL (9.2-13.0); MONOCYTES 14.3 %; NEUTROPHILS 76.5 %; NEUTROPHILS ABSOLUTE 16.62 10/3/uL (2.02-8.40); PLATELET COUNT 125 10/3/uL (150-400); RBC DISTRIBUTION WIDTH 16.6 % (12.0-16.0); RED CELL COUNT 3.13 10/6/uL (4.7-6.1); WHITE BLOOD CELLS 21.7 10/3/uL (4.5-10.5)
[2016-08-07 04:56] LABS: CALCIUM, SERUM 8.9 MG/DL (8.5-10.4); CHLORIDE, SERUM 104 MMOL/L (96-112); CO2 (CARBON DIOXIDE) 19 MMOL/L (24-34); CREATININE 1.45 MG/DL (0.70-1.30); GFR AFRICAN AMERICAN 53 ML/MIN (>=60); GFR NON AFRICAN AMERICAN 46 ML/MIN (>=60); GLUCOSE, SERUM 125 MG/DL (60-99); POTASSIUM, SERUM 4.2 MMOL/L (3.5-5.3); SODIUM, SERUM 135 MMOL/L (135-148)
[2016-08-07 04:57] LABS: BUN (BLOOD UREA NITROGEN) 46 MG/DL (6-23)
[2016-08-07 05:58] LABS: PROCALCITONIN 0.93 ng/mL (<0.5)
[2016-08-08 04:15] LABS: INTERNATIONAL NORMAL RATI 1.7 UNITS (-); PROTIME (NOT ORD) 19.9 SEC (12.0-14.5)
[2016-08-08 04:20] LABS: BASOPHILS 0.1 %; BASOPHILS ABSOLUTE 0.01 10/3/uL (0.0-0.16); EOSINOPHILS 0 %; HEMATOCRIT 25.5 % (40.0-51.0); HEMOGLOBIN 8.5 g/dL (13.6-17.8); IMMATURE GRANULOCYTES 0.5 %; IMMATURE GRANULOCYTES ABSOLUTE 0.09 10/3/uL (0.0-0.11); LYMPHOCYTES 4.7 %; LYMPHOCYTES ABSOLUTE 0.78 10/3/uL (0.67-4.30); MANUAL DIFF NO %; MEAN CORPUS HGB CONC 33.3 g/dL (32.0-36.0); MEAN CORPUSCULAR HEMOGLOB 26.6 pg (26.0-34.0); MEAN CORPUSCULAR VOLUME 79.7 fL (80-100); MEAN PLATELET VOLUME 9.9 fL (9.2-13.0); MONOCYTES 7.3 %; MONOCYTES ABSOLUTE 1.22 10/3/uL (0.21-1.20); NEUTROPHILS 87.4 %; NEUTROPHILS ABSOLUTE 14.66 10/3/uL (2.02-8.40); PLATELET COUNT 131 10/3/uL (150-400); RBC DISTRIBUTION WIDTH 16.8 % (12.0-16.0); WHITE BLOOD CELLS 16.8 10/3/uL (4.5-10.5)
[2016-08-08 04:23] LABS: ALBUMIN 3.2 G/DL (3.5-5.0); CALCIUM, SERUM 8.7 MG/DL (8.5-10.4); CHLORIDE, SERUM 101 MMOL/L (96-112); CREATININE 1.18 MG/DL (0.70-1.30); GFR AFRICAN AMERICAN 69 ML/MIN (>=60); GFR NON AFRICAN AMERICAN 59 ML/MIN (>=60); PHOSPHORUS, SERUM 2.5 MG/DL (2.5-4.5); POTASSIUM, SERUM 4.1 MMOL/L (3.5-5.3); SODIUM, SERUM 135 MMOL/L (135-148)
[2016-08-08 04:24] LABS: BUN (BLOOD UREA NITROGEN) 36 MG/DL (6-23); CO2 (CARBON DIOXIDE) 23 MMOL/L (24-34); GLUCOSE, SERUM 172 MG/DL (60-99)
[2016-08-09 03:58] LABS: INTERNATIONAL NORMAL RATI 3.2 UNITS (-)
[2016-08-09 04:02] LABS: PROTIME (NOT ORD) 32.8 SEC (12.0-14.5)
[2016-08-09 04:05] LABS: BUN (BLOOD UREA NITROGEN) 36 MG/DL (6-23); CALCIUM, SERUM 8.8 MG/DL (8.5-10.4); CHLORIDE, SERUM 101 MMOL/L (96-112); CO2 (CARBON DIOXIDE) 26 MMOL/L (24-34); CREATININE 1.12 MG/DL (0.70-1.30); GFR AFRICAN AMERICAN 73 ML/MIN (>=60); GFR NON AFRICAN AMERICAN 63 ML/MIN (>=60); GLUCOSE, SERUM 183 MG/DL (60-99); POTASSIUM, SERUM 3.6 MMOL/L (3.5-5.3); SODIUM, SERUM 137 MMOL/L (135-148)
[2016-08-09 11:15] LABS: BASOPHILS 0.1 %; BASOPHILS ABSOLUTE 0.01 10/3/uL (0.0-0.16); EOSINOPHILS 0 %; HEMATOCRIT 25.3 % (40.0-51.0); HEMOGLOBIN 8.2 g/dL (13.6-17.8); IMMATURE GRANULOCYTES 1.1 %; LYMPHOCYTES 3.7 %; LYMPHOCYTES ABSOLUTE 0.67 10/3/uL (0.67-4.30); MANUAL DIFF NO %; MEAN CORPUS HGB CONC 32.4 g/dL (32.0-36.0); MEAN CORPUSCULAR HEMOGLOB 25.9 pg (26.0-34.0); MEAN CORPUSCULAR VOLUME 79.8 fL (80-100); MEAN PLATELET VOLUME 9.2 fL (9.2-13.0); MONOCYTES 6.8 %; MONOCYTES ABSOLUTE 1.24 10/3/uL (0.21-1.20); NEUTROPHILS 88.3 %; NEUTROPHILS ABSOLUTE 16.13 10/3/uL (2.02-8.40); NUCLEATED RED BLOOD CELLS 0.9 /100WBC (0-0); PLATELET COUNT 142 10/3/uL (150-400); RBC DISTRIBUTION WIDTH 17.8 % (12.0-16.0); RED CELL COUNT 3.17 10/6/uL (4.7-6.1); WHITE BLOOD CELLS 18.3 10/3/uL (4.5-10.5)
[2016-08-10 03:52] LABS: PROTIME (NOT ORD) 49.8 SEC (12.0-14.5)
[2016-08-10 03:53] LABS: INTERNATIONAL NORMAL RATI 5.5 UNITS (-)
[2016-08-10 03:56] LABS: BUN (BLOOD UREA NITROGEN) 41 MG/DL (6-23); CALCIUM, SERUM 8.6 MG/DL (8.5-10.4); CHLORIDE, SERUM 99 MMOL/L (96-112); CO2 (CARBON DIOXIDE) 25 MMOL/L (24-34); CREATININE 1.17 MG/DL (0.70-1.30); GFR AFRICAN AMERICAN 69 ML/MIN (>=60); GFR NON AFRICAN AMERICAN 60 ML/MIN (>=60); GLUCOSE, SERUM 134 MG/DL (60-99); POTASSIUM, SERUM 4.3 MMOL/L (3.5-5.3); SODIUM, SERUM 134 MMOL/L (135-148)
[2016-08-10 03:58] LABS: HEMATOCRIT 24.4 % (40.0-51.0); MEAN CORPUS HGB CONC 32.8 g/dL (32.0-36.0); MEAN CORPUSCULAR HEMOGLOB 26.1 pg (26.0-34.0); MEAN CORPUSCULAR VOLUME 79.5 fL (80-100); MEAN PLATELET VOLUME 9.9 fL (9.2-13.0); NUCLEATED RED BLOOD CELLS 1.4 /100WBC (0-0); PLATELET COUNT 155 10/3/uL (150-400); RED CELL COUNT 3.07 10/6/uL (4.7-6.1); WHITE BLOOD CELLS 15.8 10/3/uL (4.5-10.5)
[2016-08-10 04:00] LABS: MANUAL DIFF YES %
[2016-08-10 04:16] LABS: BAND NEUTROPHILS 1 %; LYMPHOCYTES 11 %; LYMPHOCYTES ABSOLUTE (CALC) 1.74 10/3/uL (0.67-4.30); MONOCYTES 5 %; MONOCYTES ABSOLUTE (CALC) 0.79 10/3/uL (0.21-1.20); NEUTROPHILS ABSOLUTE (CALC) 13.27 10/3/uL (2.02-8.40); SEGMENTED NEUTROPHIL (0) 83 %; TOTAL NUCLEATED CELLS 100
[2016-08-10 04:19] LABS: ANISOCYTOSIS 1+ (5-10/OIF) (0-5/OIF); PLATELET ESTIMATE ADQ (ADEQUATE); RBC MORPHOLOGY ABN (NORMAL)
[2016-08-11 03:44] LABS: HEMATOCRIT 24.5 % (40.0-51.0); HEMOGLOBIN 8.1 g/dL (13.6-17.8); MEAN CORPUS HGB CONC 33.1 g/dL (32.0-36.0); MEAN CORPUSCULAR HEMOGLOB 26.2 pg (26.0-34.0); MEAN CORPUSCULAR VOLUME 79.3 fL (80-100); MEAN PLATELET VOLUME 9.7 fL (9.2-13.0); NUCLEATED RED BLOOD CELLS 0.7 /100WBC (0-0); PLATELET COUNT 157 10/3/uL (150-400); RBC DISTRIBUTION WIDTH 17.6 % (12.0-16.0); RED CELL COUNT 3.09 10/6/uL (4.7-6.1); WHITE BLOOD CELLS 15.5 10/3/uL (4.5-10.5)
[2016-08-11 03:46] LABS: MANUAL DIFF YES %
[2016-08-11 03:48] LABS: INTERNATIONAL NORMAL RATI 4.8 UNITS (-); PROTIME (NOT ORD) 44.8 SEC (12.0-14.5)
[2016-08-11 03:51] LABS: CALCIUM, SERUM 8.3 MG/DL (8.5-10.4); CHLORIDE, SERUM 102 MMOL/L (96-112); CO2 (CARBON DIOXIDE) 25 MMOL/L (24-34); CREATININE 1.18 MG/DL (0.70-1.30); GFR AFRICAN AMERICAN 69 ML/MIN (>=60); GFR NON AFRICAN AMERICAN 59 ML/MIN (>=60); POTASSIUM, SERUM 3.7 MMOL/L (3.5-5.3); SODIUM, SERUM 134 MMOL/L (135-148)
[2016-08-11 03:52] LABS: BUN (BLOOD UREA NITROGEN) 46 MG/DL (6-23); GLUCOSE, SERUM 105 MG/DL (60-99)
[2016-08-11 03:56] LABS: ANISOCYTOSIS 1+ (5-10/OIF) (0-5/OIF); BAND NEUTROPHILS 1 %; LYMPHOCYTES 4 %; LYMPHOCYTES ABSOLUTE (CALC) 0.62 10/3/uL (0.67-4.30); MONOCYTES 10 %; MONOCYTES ABSOLUTE (CALC) 1.55 10/3/uL (0.21-1.20); NEUTROPHILS ABSOLUTE (CALC) 13.33 10/3/uL (2.02-8.40); PLATELET ESTIMATE ADQ (ADEQUATE); POIKILOCYTOSIS 1+ (5-10/OIF) (0-5/OIF); POLYCHROMASIA 1+ (2-5/OIF) (0-1/OIF); SCHISTOCYTES OCC (0-2/OIF); SEGMENTED NEUTROPHIL (0) 85 %; TARGET CELLS FEW (3-10/OIF) (0-1/OIF); TEARDROP SHAPED RBCS FEW (3-10/OIF); TOTAL NUCLEATED CELLS 100
[2016-08-12 04:47] LABS: CALCIUM, SERUM 8.1 MG/DL (8.5-10.4); CHLORIDE, SERUM 104 MMOL/L (96-112); CO2 (CARBON DIOXIDE) 23 MMOL/L (24-34); CREATININE 0.85 MG/DL (0.70-1.30); GFR AFRICAN AMERICAN 97 ML/MIN (>=60); GFR NON AFRICAN AMERICAN 84 ML/MIN (>=60); GLUCOSE, SERUM 98 MG/DL (60-99); POTASSIUM, SERUM 3.4 MMOL/L (3.5-5.3); SODIUM, SERUM 134 MMOL/L (135-148)
[2016-08-12 04:50] LABS: BUN (BLOOD UREA NITROGEN) 31 MG/DL (6-23)
[2016-08-12 04:51] LABS: INTERNATIONAL NORMAL RATI 1.6 UNITS (-)
[2016-08-12 04:55] LABS: PROTIME (NOT ORD) 18.9 SEC (12.0-14.5)
[2016-08-12 05:32] LABS: HEMATOCRIT 25.3 % (40.0-51.0); HEMOGLOBIN 8.1 g/dL (13.6-17.8); MEAN CORPUSCULAR HEMOGLOB 25.7 pg (26.0-34.0); MEAN CORPUSCULAR VOLUME 80.3 fL (80-100); MEAN PLATELET VOLUME 9.2 fL (9.2-13.0); PLATELET COUNT 175 10/3/uL (150-400); RBC DISTRIBUTION WIDTH 17.3 % (12.0-16.0); RED CELL COUNT 3.15 10/6/uL (4.7-6.1); WHITE BLOOD CELLS 18.4 10/3/uL (4.5-10.5)
[2016-08-12 05:38] LABS: MANUAL DIFF YES %
[2016-08-12 06:06] LABS: BAND NEUTROPHILS 5 %; EOSINOPHILS 1 %; EOSINOPHILS ABSOLUTE (CALC) 0.18 10/3/uL (0.0-0.53); IMMATURE GRANS ABSOLUTE (CALC) 0.37 10/3/uL (0.0-0.11); LYMPHOCYTES 7 %; LYMPHOCYTES ABSOLUTE (CALC) 1.29 10/3/uL (0.67-4.30); METAMYELOCYTES 2 %; NEUTROPHILS ABSOLUTE (CALC) 16.56 10/3/uL (2.02-8.40); PLATELET ESTIMATE ADQ (ADEQUATE); SEGMENTED NEUTROPHIL (0) 85 %; TOTAL NUCLEATED CELLS 100
[2016-08-12 06:07] LABS: ANISOCYTOSIS 1+ (5-10/OIF) (0-5/OIF); ELLIPTOCYTES 1+ (3-10/OIF) (0-2/OIF); SPHEROCYTES OCC (0-2/OIF); TEARDROP SHAPED RBCS OCC (0-2/OIF)
[2016-08-13 04:13] LABS: BASOPHILS 0 %; BASOPHILS ABSOLUTE 0.01 10/3/uL (0.0-0.16); EOSINOPHILS 1.5 %; EOSINOPHILS ABSOLUTE 0.34 10/3/uL (0.0-0.53); HEMOGLOBIN 8.2 g/dL (13.6-17.8); IMMATURE GRANULOCYTES 1.2 %; IMMATURE GRANULOCYTES ABSOLUTE 0.26 10/3/uL (0.0-0.11); LYMPHOCYTES 8.2 %; LYMPHOCYTES ABSOLUTE 1.83 10/3/uL (0.67-4.30); MEAN CORPUS HGB CONC 31.5 g/dL (32.0-36.0); MEAN CORPUSCULAR HEMOGLOB 25.4 pg (26.0-34.0); MEAN CORPUSCULAR VOLUME 80.5 fL (80-100); MONOCYTES 6.6 %; MONOCYTES ABSOLUTE 1.47 10/3/uL (0.21-1.20); NEUTROPHILS 82.5 %; NEUTROPHILS ABSOLUTE 18.51 10/3/uL (2.02-8.40); PLATELET COUNT 179 10/3/uL (150-400); RBC DISTRIBUTION WIDTH 17.1 % (12.0-16.0); RED CELL COUNT 3.23 10/6/uL (4.7-6.1); WHITE BLOOD CELLS 22.4 10/3/uL (4.5-10.5)
[2016-08-13 04:18] LABS: MANUAL DIFF NO %
[2016-08-13 04:22] LABS: INTERNATIONAL NORMAL RATI 2.2 UNITS (-)
[2016-08-13 04:24] LABS: PROTIME (NOT ORD) 24.2 SEC (12.0-14.5)
[2016-08-13 04:25] LABS: BUN (BLOOD UREA NITROGEN) 24 MG/DL (6-23); CHLORIDE, SERUM 101 MMOL/L (96-112); CO2 (CARBON DIOXIDE) 25 MMOL/L (24-34); CREATININE 0.91 MG/DL (0.70-1.30); GFR AFRICAN AMERICAN 94 ML/MIN (>=60); GFR NON AFRICAN AMERICAN 81 ML/MIN (>=60); GLUCOSE, SERUM 112 MG/DL (60-99); POTASSIUM, SERUM 3.4 MMOL/L (3.5-5.3); SODIUM, SERUM 134 MMOL/L (135-148)
[2016-08-13 12:34] LABS: ASCORBIC ACID (UR NOT ORDER) 40 (NEG); BILIRUBIN, URINE NEGATIVE (NEG); KETONE, URINE NEGATIVE (NEG); LEUKOCYTE ESTERASE(NOT OR TRACE (NEG); WBC (NOT ORDERED) (RFLEX) 3 (0-5)
[2016-08-14 05:00] LABS: BASOPHILS 0.1 %; BASOPHILS ABSOLUTE 0.01 10/3/uL (0.0-0.16); EOSINOPHILS 1.4 %; EOSINOPHILS ABSOLUTE 0.26 10/3/uL (0.0-0.53); HEMATOCRIT 25.6 % (40.0-51.0); HEMOGLOBIN 8.2 g/dL (13.6-17.8); IMMATURE GRANULOCYTES 1.1 %; IMMATURE GRANULOCYTES ABSOLUTE 0.21 10/3/uL (0.0-0.11); INTERNATIONAL NORMAL RATI 2.2 UNITS (-); LYMPHOCYTES 9.5 %; LYMPHOCYTES ABSOLUTE 1.82 10/3/uL (0.67-4.30); MEAN CORPUSCULAR HEMOGLOB 25.9 pg (26.0-34.0); MEAN CORPUSCULAR VOLUME 80.8 fL (80-100); MEAN PLATELET VOLUME 9.1 fL (9.2-13.0); MONOCYTES 8.2 %; MONOCYTES ABSOLUTE 1.57 10/3/uL (0.21-1.20); NEUTROPHILS 79.7 %; NEUTROPHILS ABSOLUTE 15.34 10/3/uL (2.02-8.40); PLATELET COUNT 209 10/3/uL (150-400); PROTIME (NOT ORD) 24.4 SEC (12.0-14.5); RBC DISTRIBUTION WIDTH 17.2 % (12.0-16.0); RED CELL COUNT 3.17 10/6/uL (4.7-6.1); WHITE BLOOD CELLS 19.2 10/3/uL (4.5-10.5)
[2016-08-14 05:08] LABS: MANUAL DIFF NO %
[2016-08-14 05:11] LABS: CALCIUM, SERUM 8.3 MG/DL (8.5-10.4); CHLORIDE, SERUM 102 MMOL/L (96-112); CO2 (CARBON DIOXIDE) 27 MMOL/L (24-34); CREATININE 0.89 MG/DL (0.70-1.30); GFR AFRICAN AMERICAN 96 ML/MIN (>=60); GFR NON AFRICAN AMERICAN 82 ML/MIN (>=60); GLUCOSE, SERUM 112 MG/DL (60-99); POTASSIUM, SERUM 3.8 MMOL/L (3.5-5.3); SODIUM, SERUM 134 MMOL/L (135-148)
[2016-08-14 05:12] LABS: BUN (BLOOD UREA NITROGEN) 20 MG/DL (6-23)
[2016-08-15 06:11] LABS: INTERNATIONAL NORMAL RATI 2.1 UNITS (-); PROTIME (NOT ORD) 23.2 SEC (12.0-14.5)
[2016-08-15 06:12] LABS: BUN (BLOOD UREA NITROGEN) 16 MG/DL (6-23); CALCIUM, SERUM 8.6 MG/DL (8.5-10.4); CHLORIDE, SERUM 103 MMOL/L (96-112); CO2 (CARBON DIOXIDE) 26 MMOL/L (24-34); CREATININE 0.87 MG/DL (0.70-1.30); GFR AFRICAN AMERICAN 96 ML/MIN (>=60); GFR NON AFRICAN AMERICAN 83 ML/MIN (>=60); GLUCOSE, SERUM 109 MG/DL (60-99); SODIUM, SERUM 135 MMOL/L (135-148)
[2016-08-16 05:47] LABS: PROTIME (NOT ORD) 22.6 SEC (12.0-14.5)
[2016-08-17 04:52] LABS: INTERNATIONAL NORMAL RATI 1.8 UNITS (-); PROTIME (NOT ORD) 20.5 SEC (12.0-14.5)
[2016-08-17 07:59] LABS: BASOPHILS 0.1 %; BASOPHILS ABSOLUTE 0.01 10/3/uL (0.0-0.16); EOSINOPHILS 0.9 %; EOSINOPHILS ABSOLUTE 0.13 10/3/uL (0.0-0.53); HEMATOCRIT 26.2 % (40.0-51.0); HEMOGLOBIN 8.3 g/dL (13.6-17.8); IMMATURE GRANULOCYTES 0.3 %; IMMATURE GRANULOCYTES ABSOLUTE 0.05 10/3/uL (0.0-0.11); LYMPHOCYTES 7.9 %; LYMPHOCYTES ABSOLUTE 1.18 10/3/uL (0.67-4.30); MEAN CORPUS HGB CONC 31.7 g/dL (32.0-36.0); MEAN CORPUSCULAR HEMOGLOB 25.6 pg (26.0-34.0); MEAN CORPUSCULAR VOLUME 80.9 fL (80-100); MEAN PLATELET VOLUME 8.8 fL (9.2-13.0); MONOCYTES 14.8 %; MONOCYTES ABSOLUTE 2.21 10/3/uL (0.21-1.20); NEUTROPHILS ABSOLUTE 11.37 10/3/uL (2.02-8.40); PLATELET COUNT 258 10/3/uL (150-400); RBC DISTRIBUTION WIDTH 17.6 % (12.0-16.0); RED CELL COUNT 3.24 10/6/uL (4.7-6.1)
[2016-08-17 08:00] LABS: MANUAL DIFF NO %
[2016-08-17 08:12] LABS: A/G RATIO 0.9 (0.7-1.9); ALBUMIN 2.7 G/DL (3.5-5.0); ALKALINE PHOSPHATASE 73 U/L (45-117); BUN (BLOOD UREA NITROGEN) 17 MG/DL (6-23); CALCIUM, SERUM 8.6 MG/DL (8.5-10.4); CHLORIDE, SERUM 103 MMOL/L (96-112); CO2 (CARBON DIOXIDE) 25 MMOL/L (24-34); CREATININE 0.88 MG/DL (0.70-1.30); GFR AFRICAN AMERICAN 96 ML/MIN (>=60); GFR NON AFRICAN AMERICAN 83 ML/MIN (>=60); GLUCOSE, SERUM 76 MG/DL (60-99); POTASSIUM, SERUM 3.4 MMOL/L (3.5-5.3); SGOT(AST) 21 U/L (5-40); SGPT(ALT) 31 U/L (5-65); SODIUM, SERUM 137 MMOL/L (135-148); TOTAL BILIRUBIN 0.7 MG/DL (0-1.2); TOTAL PROTEIN 5.7 G/DL (6.0-8.5)
[2016-08-18 05:58] LABS: BASOPHILS 0.1 %; BASOPHILS ABSOLUTE 0.02 10/3/uL (0.0-0.16); EOSINOPHILS 0.7 %; HEMATOCRIT 25.3 % (40.0-51.0); IMMATURE GRANULOCYTES 0.4 %; IMMATURE GRANULOCYTES ABSOLUTE 0.05 10/3/uL (0.0-0.11); LYMPHOCYTES 9.2 %; LYMPHOCYTES ABSOLUTE 1.26 10/3/uL (0.67-4.30); MEAN CORPUS HGB CONC 31.6 g/dL (32.0-36.0); MEAN CORPUSCULAR HEMOGLOB 25.5 pg (26.0-34.0); MEAN CORPUSCULAR VOLUME 80.6 fL (80-100); MEAN PLATELET VOLUME 8.6 fL (9.2-13.0); MONOCYTES ABSOLUTE 2.19 10/3/uL (0.21-1.20); NEUTROPHILS 73.6 %; NEUTROPHILS ABSOLUTE 10.11 10/3/uL (2.02-8.40); PLATELET COUNT 261 10/3/uL (150-400); RBC DISTRIBUTION WIDTH 17.5 % (12.0-16.0); RED CELL COUNT 3.14 10/6/uL (4.7-6.1); WHITE BLOOD CELLS 13.7 10/3/uL (4.5-10.5)
[2016-08-18 05:59] LABS: MANUAL DIFF NO %
[2016-08-18 06:04] LABS: INTERNATIONAL NORMAL RATI 1.9 UNITS (-); PROTIME (NOT ORD) 21.7 SEC (12.0-14.5)
[2016-08-18 06:11] LABS: BUN (BLOOD UREA NITROGEN) 14 MG/DL (6-23); CALCIUM, SERUM 8.7 MG/DL (8.5-10.4); CHLORIDE, SERUM 99 MMOL/L (96-112); CO2 (CARBON DIOXIDE) 29 MMOL/L (24-34); GFR AFRICAN AMERICAN 75 ML/MIN (>=60); GFR NON AFRICAN AMERICAN 64 ML/MIN (>=60); GLUCOSE, SERUM 103 MG/DL (60-99); POTASSIUM, SERUM 3.5 MMOL/L (3.5-5.3); SODIUM, SERUM 137 MMOL/L (135-148)
[2016-08-19 06:07] LABS: PROTIME (NOT ORD) 22.8 SEC (12.0-14.5)
[2016-08-20 06:00] LABS: CALCIUM, SERUM 8.7 MG/DL (8.5-10.4); CHLORIDE, SERUM 99 MMOL/L (96-112); CO2 (CARBON DIOXIDE) 29 MMOL/L (24-34); CREATININE 1.16 MG/DL (0.70-1.30); GFR AFRICAN AMERICAN 70 ML/MIN (>=60); GFR NON AFRICAN AMERICAN 60 ML/MIN (>=60); GLUCOSE, SERUM 108 MG/DL (60-99); POTASSIUM, SERUM 3.3 MMOL/L (3.5-5.3); SODIUM, SERUM 137 MMOL/L (135-148)
[2016-08-20 06:01] LABS: BUN (BLOOD UREA NITROGEN) 19 MG/DL (6-23)
[2016-08-20 06:06] LABS: INTERNATIONAL NORMAL RATI 2.1 UNITS (-); PROTIME (NOT ORD) 23.2 SEC (12.0-14.5)
== END 2016-08-20 08:26 | DRG 219 ==
LOC: SDC/OF 05:20 → CVICU 09:48 → 5NO 08-11 15:22
PROVIDERS: Internal Medicine; Internal Medicine Cardiovascular Disease; Internal Medicine Clinical Cardiac Electrophysiology; Internal Medicine Critical Care Medicine; Internal Medicine Nephrology; Nurse Practitioner Family; Thoracic Surgery (Cardiothoracic Vascular Surgery)
PROC: B246ZZ4 Ultrasonography of Right and Left Heart, Transesophageal (ICD-10-PCS; 2016-08-04)
PROC: 5A1221Z Performance of Cardiac Output, Continuous (ICD-10-PCS; 2016-08-04)
PROC: 02RG08Z Replacement of Mitral Valve with Zooplastic Tissue, Open Approach (ICD-10-PCS; principal; 2016-08-04 07:00)
PROC: 02580ZZ Destruction of Conduction Mechanism, Open Approach (ICD-10-PCS; 2016-08-04 07:00)
PROC: 02L70CK Occlusion of Left Atrial Appendage with Extraluminal Device, Open Approach (ICD-10-PCS; 2016-08-06)
DX: I05.2 Rheumatic mitral stenosis with insufficiency (principal); J95.821 Acute postprocedural respiratory failure; N17.9 Acute kidney failure, unspecified; E87.2 Acidosis; J98.11 Atelectasis; D62 Acute posthemorrhagic anemia; I48.0 Paroxysmal atrial fibrillation; I27.2 Other secondary pulmonary hypertension; I45.10 Unspecified right bundle-branch block; I10 Essential (primary) hypertension; E78.5 Hyperlipidemia, unspecified; G47.33 Obstructive sleep apnea (adult) (pediatric); Z87.891 Personal history of nicotine dependence
CPT/HCPCS: 36415; 36600; 71010; 71020; 80048; 80053; 80069; 81001; 82330; 82570; 82803; 82805; 82947; 82962; 83036; 83540; 83550; 83735; 84132; 84145; 84295; 84300; 85014; 85018; 85025; 85049; 85347; 85610; 85730; 86850; 86900; 86901; 86920; 87040; 87641; 88305; 92610-GN; 93005; 93308; 93312; 93320; 93325; 94002; 94640; 94660; 94770; 97162-GP; 97530-GP; A9270-GY; C1713; C1894; C2618; G8978-CJ-GP; G8979-CI-GP; G8996-CI-GN; G8997-CI-GN; G8998-CI-GN; J0282; J0360; J0690; J1644; J1940; J2150; J2250; J2370; J2405; J2720; J2795; J2930; J3010; J3430; J3475; P9016; P9045; P9047